=== PATIENT | male | born 1965 | race Caucasian/White ===

== ENCOUNTER 2018-02-02 07:15 | Day surgery (SDC) | payer BC ==
[2018-02-02] MEDS ORDERED: MIDAZOLAM HCL 2MG/2ML VIAL IV ONE (07:16)
[2018-02-02] MEDS ORDERED: PROPOFOL 10 MG/ML VIAL IV ONE (07:16)
[2018-02-02] MEDS ORDERED: LIDOCAINE 2% MDV (20MG/ML) 20ML VIAL IV ONE (07:16)
--- NOTE | 2018-02-03 13:20 | Operative Note ---
DATE OF SURGERY: 02/02/2018 OPERATION: COLONOSCOPY to the cecum with multiple biopsies and cold biopsy forceps polypectomy x1. INDICATION: History of ulcerative proctitis. The patient presents today for evaluation due to increasing symptoms with bloody diarrhea, stool frequency and urgency. He has been treated with Delzicol 2.4 g daily. ANESTHESIA: Intravenous sedation was administered by the department of anesthesiology and included Diprivan titrated to effect. PROCEDURE: Following informed consent from this alert individual including a discussion of the risks and benefits of the procedure and an opportunity for the patient to ask questions, the patient was in the left lateral decubitus position. A digital rectal examination was performed. No abnormalities were noted. Following this, the Olympus [id number] video colonoscope was inserted into the rectum without resistance. The rectal mucosa was inflamed with superficial ulcerations, edema, erythema, and friable-appearing mucosa. The abnormal mucosa was most severe in the rectum but extended up to 30 cm from the anal verge. At this point, there was a transition noted with a normal-appearing mucosa. The descending colon, transverse, ascending colon, and cecum had a normal-appearing mucosa. Diverticulosis was mild but noted in the sigmoid colon and ascending colon region. The cecum was well defined by noting the appendiceal orifice and ileocecal valve. The terminal ileum was cannulated and found to be normal. Retroflexion in the cecum was also endoscopically unremarkable. From the base of the cecum, the colonoscope was then withdrawn. Random biopsies were taken from a normal-appearing mucosa in the ascending colon, transverse colon, and descending colon. In the distal descending colon, there was a diminutive 3 mm polyp noted which was removed with cold biopsy forceps. There was a separate set of biopsies taken from the sigmoid colon and rectum which again appeared inflamed. Retroflexion in the rectum also revealed proctitis. No significant hemorrhoidal disease was noted. The endoscope was straightened and removed. The patient tolerated the procedure well and was returned to the recovery area in stable condition. IMPRESSION: 1. Left-sided ulcerative colitis extending to 30 cm from the anal verge as described above. 2. Normal terminal ileum. 3. Mild diverticulosis in the ascending colon and sigmoid colon. 4. A 3 mm polyp in the distal descending colon removed with biopsy forceps. RECOMMENDATIONS: The patient will be started on Rowasa enemas nightly. I will also start him with steroids. Further recommendations will be forthcoming pending results of pathology obtained today. The patient will be following up in our office as well and was instructed to call with any problems or questions that might arise. As always, thank you for allowing me to participate in the care of your patient. CC: Dr. Dionne SINGH
== END 2018-02-02 09:45 | disposition home or self-care (01) ==
LOC: HOP 07:15
PROVIDERS: ATTEND Internal Medicine Gastroenterology
DX: K92.1 Melena (principal); R15.2 Fecal urgency; Z87.19 Personal history of other diseases of the digestive system; D12.4 Benign neoplasm of descending colon; K51.90 Ulcerative colitis, unspecified, without complications; K57.30 Diverticulosis of large intestine without perforation or abscess without bleeding; I10 Essential (primary) hypertension